=== PATIENT | female | born 1965 | race Caucasian/White ===

== ENCOUNTER 2019-11-05 09:39 | Outpatient (CLI) | payer OTHER, SELFPAY ==
[2019-11-05 10:33] LABS: Alanine Aminotransferase 36 U/L (4-35); Aspartate Amino Transferase 24 U/L (14-36)
== END 2019-11-05 09:40 | disposition home or self-care (01) ==
LOC: ANHLAB 09:48
PROVIDERS: PCP Internal Medicine; Visit Provider Podiatrist Foot & Ankle Surgery
DX: B35.1 Tinea unguium (principal)
CPT/HCPCS: 36415; 84450; 84460

== ENCOUNTER 2022-04-05 09:52 | Outpatient (CLI) | payer OTHER, SELFPAY ==
--- NOTE | 2022-04-05 10:00 | ECG_ITS ---
Measurements Intervals [place] Rate: 72 P: 17 [place]: 183 QRS: 13 QRSD: 93 T: 10 QT: 388 QTc: 427 Interpretive Statements SINUS RHYTHM NORMAL ECG NO PREVIOUS ECG AVAILABLE FOR COMPARISON Electronically Signed On 04-05-2022 16:08:44 CDT by Felipe Suggs M.D.
== END 2022-04-05 09:53 | disposition home or self-care (01) ==
LOC: ANHCARD 09:53
PROVIDERS: PCP Family Medicine; Visit Provider Family Medicine
DX: Z01.818 Encounter for other preprocedural examination (principal); I10 Essential (primary) hypertension
CPT/HCPCS: 93005

== ENCOUNTER 2022-04-11 06:36 | Outpatient (CLI) | payer OTHER, SELFPAY ==
--- NOTE | ~2022-04-11 | MR_ITS ---
EXAMINATION: MR brain/brain stem wo con DATE: 04/11/2022 07:09 INDICATION: Right eye monocular vision loss. Sudden visual loss. TECHNIQUE: Magnetic resonance imaging (MRI) of the brain and brainstem was performed without intraven ous contrast. COMPARISON: None. FINDINGS: There is no intracranial hemorrhage, acute infarction, or abnormal intracranial mass lesion . There are scattered areas of nonspecific increased T2-weighted signal intensity in the cerebral whi te matter and yoseph. The ventricles are normal in size. The mastoid air cells are normal. The orbits a re normal. There is mild mucosal thickening in the paranasal sinuses. IMPRESSION: 1. Mild nonspecific cerebral white matter disease and pontine disease, which likely represents chroni c small vessel ischemic disease. Reviewed, dictated and finalized at location A. IMPRESSION: 1. Mild nonspecific cerebral white matter disease and pontine disease, which israel stephen represents chronic small vessel ischemic disease.
== END 2022-04-11 06:37 | disposition home or self-care (01) ==
PROVIDERS: PCP Family Medicine; Visit Provider Physician Assistant Medical
DX: H53.139 Sudden visual loss, unspecified eye (principal); R90.82 White matter disease, unspecified; G93.89 Other specified disorders of brain
CPT/HCPCS: 70551

== ENCOUNTER → 2022-07-17 14:50 | Outpatient (CLI) | payer OTHER, SELFPAY ==
--- NOTE | ~2022-07-17 | CT_ITS ---
EXAMINATION: CTA brain carotid DATE: 07/18/2022 13:03 RAYON CONER INDICATION: Right-sided amaurosis fugax TECHNIQUE: Computed tomographic angiography (CTA) of the head was performed without and with 100 mL O mnipaque-350 intravenous contrast. CTA of the neck was performed with intravenous contrast. The dose- length product was 1577.53 mGy-cm. Maximum intensity projection and volume rendered 3D-reconstruction s were created by the technologist on a separate workstation. COMPARISON: MRI dated 04/11/2022. FINDINGS: HEAD CTA: Brain parenchymal volume is normal for age. There are scattered mild periventricular and correa bcortical white matter changes, most likely related to small vessel ischemic disease (microangiopathy ). No ventriculomegaly or midline shift. Basilar cisterns are patent. No acute infarction, hemorrhage , mass or mass effect. Normal vega-white differentiation. Paranasal sinuses and mastoids are pneumati zed. There is mild mucosal thickening of the left sphenoid sinus. The anterior, middle and posterior cerebral arteries are symmetric without significant stenosis, occl usion or aneurysm. NECK CTA: No significant stenosis, atherosclerosis, dissection or occlusion is identified in the ramirez tid arteries. The vertebral arteries are symmetric without significant abnormality. Thyroid gland is unremarkable. Lung apices are normal. There is 0% stenosis of the proximal right internal carotid artery relative to normal distal artery l umen diameter (NASCET criteria). There is 0% stenosis of the proximal left internal carotid artery re lative to normal distal artery lumen diameter. IMPRESSION: 1. 0% stenosis of the proximal right internal carotid artery relative to normal distal artery lumen d iameter (NASCET criteria). 2. 0% stenosis of the proximal left internal carotid artery relative to normal distal artery lumen di ameter. 3: No acute intracranial abnormality. 4: Mild left sphenoid sinus disease. Reviewed, dictated and finalized at location A. N CONER IMPRESSION: 1. 0% stenosis of the proximal right internal carotid artery relative to normal distal artery lumen diameter (NASCET criteria). 2. 0% stenosis of the proximal left internal carotid artery relative to normal distal artery lumen diameter. 3: No acute intracranial abnormality. 4: Mild left sphenoid sinus disease.
[2022-07-17 15:11] LABS: Estimated Glomerular Filt Rate > 60
== END ==
PROVIDERS: PCP Family Medicine; Visit Provider Student in an Organized Health Care Education/Training Program
DX: H53.131 Sudden visual loss, right eye (principal); J32.3 Chronic sphenoidal sinusitis
CPT/HCPCS: 70496; 70498; Q9967

== ENCOUNTER 2024-01-08 07:55 | Outpatient (CLI) | payer OTHER, SELFPAY ==
--- NOTE | ~2024-01-08 | US_ITS ---
Limited Abdominal Sonogram: Real-time sonographic imaging of the right upper quadrant was performed. Clinical History: Abnormal findings of blood chemistry Findings: The liver appears mildly echogenic, with no evidence of mass lesion or bile duct dilatatio n. Main portal vein demonstrates normal direction of flow. The gallbladder is well distended, and gautam ears normal with no evidence of gallstone or wall thickening. The common bile duct measures 3 mm. Th e visualized pancreas, aorta, and IVC are unremarkable. Right kidney measures 10.4 cm in length, with out hydronephrosis. Impression: Probable diffuse fatty infiltration of the liver. Reviewed, dictated and finalized at location . Impression: Probable diffuse fatty infiltration of the liver.
== END 2024-01-08 07:56 ==
LOC: MICIMG 07:56
PROVIDERS: PCP Family Medicine; Visit Provider Physician Assistant Medical
DX: R79.89 Other specified abnormal findings of blood chemistry (principal)
CPT/HCPCS: 76705

== ENCOUNTER 2024-03-12 08:28 | Outpatient (CLI) | payer OTHER, SELFPAY ==
--- NOTE | 2024-03-12 08:35 | ECHO_ITS ---
Patient Info Name: Treasure Myers Age: 58 years : 1965 Gender: Female Ht: 67 in Wt: 260 lbs BSA: 2.42 m2 HR: 76 bpm BP: 128 / 72 mmHg Technical Quality: Fair Exam Date: 03/12/2024 9:02 AM Exam Location: Echo Lab Patient Status: Outpatient Admit Date: 03/12/2024 Staff Ordering Physician: Kiara Black MD Trace Clerk: Erick Garcia RDCS Attending Provider: Kiara Black MD Exam Type: CA echo doppler w bubble study Study Info Indications H53.139 - Sudden visual loss, unspecified eye Complete two-dimensional, color flow and Doppler transthoracic echocardiogram is performed with agitated saline. Contrast/Agitated Saline Contrast/Ag. Saline: Agitated Saline Amount: 18.00 ml New IV Access: Left Site Condition: IV removed Summary 1. Left ventricular chamber dimension is normal. 2. Left ventricular systolic function is normal, estimated at 65-70%. 3. The left ventricular diastolic function is normal. 4. E/e '5 is not elevated. 5. There is trace mitral valve regurgitation. 6. There is trace tricuspid valve regurgitation. 7. No pulmonary hypertension, estimated pulmonary arterial systolic pressure is 28 mmHg. Left Ventricle E/e '5 is not elevated. Left ventricular chamber dimension is normal. Left ventricular systolic function is normal, estimated at 65-70%. The left ventricular diastolic function is normal. Right Ventricle Right ventricular chamber dimension is normal. Right ventricular systolic function is normal. Left Atria Left atrial chamber dimension is normal. Right Atria Right atrial chamber dimension is normal. Atrial Septum Agitated saline injection with valsalva maneuver opacified right side cardiac chambers without shunt to left side cardiac chambers. Intact interatrial septum visualized by 2D and agitated saline imaging. Aortic Valve The aortic valve is trileaflet. There is no aortic valve stenosis. There is no aortic valve regurgitation. Pulmonic Valve There is no pulmonic regurgitation. Mitral Valve There is no mitral valve stenosis. There is trace mitral valve regurgitation. Tricuspid Valve There is trace tricuspid valve regurgitation. No pulmonary hypertension, estimated pulmonary arterial systolic pressure is 28 mmHg. Pericardium/Pleural There is no pericardial effusion. Inferior Vena Cava Normal inferior vena cava with >50% collapse upon inspiration consistent with normal right atrial pressure, 5 mmHg. Aorta The aortic root size at the sinus of Valsalva is normal. Left Ventricular Outflow Tract Name Value Normal LVOT 2D LVOT Diameter 2.0 cm LVOT Doppler LVOT Peak Gradient 4 mmHg LVOT Mean Gradient 3 mmHg LVOT VTI 24 cm LVOT VTI/AV VTI Ratio 0.9 LVOT Stroke Volume 80 ml LVOT CO 5.8 l/min LVOT CI 2.4 l/min/m2 Pulmonic Valve Name Value Normal PV Doppler PV Peak Gradient 4 mmHg Mitral Valve Name Value Normal MV Doppler MV Peak Gradient 3 mmHg MV Mean Gradient 1 mmHg MV Decel [place] 395 cm/s2 MV PHT 56 ms MV Area (PHT) 3.9 cm2 4.0-5.0 MV Area (Cont Eq VTI) 4.0 cm2 MV Diastolic Function MV E Peak Velocity 77 cm/s MV A Peak Velocity 68 cm/s MV E/A 1.1 MV Decel Time 194 ms MV Annular TDI MV E/e' (Septal) 7.2 <=8.0 MV E/e' (Lateral) 5.1 <=8.0 MV E/e' (Average) 6.2 Tricuspid Valve Name Value Normal TV Regurgitation Doppler TR Peak Velocity 239 cm/s TR Peak Gradient 23 mmHg Estimated PAP/RSVP RA Pressure 5 mmHg <=5 PA Systolic Pressure 28 mmHg <36 RV Systolic Pressure 28 mmHg <36 Aortic Valve Name Value Normal AV Doppler AV Peak Velocity 136 cm/s AV Peak Gradient 7 mmHg AV Mean Gradient 4 mmHg AV VTI 27 cm AV Area (Cont Eq VTI) 3.0 cm2 >=3.0 AV Area (Cont Eq Paco) 2.5 cm2 AV Regurgitation 2D LVOT Area 3.3 cm2 Ventricles Name Value Normal LV Dimensions 2D/MM IVS Diastolic Thickness (2D) 1.0 cm 0.6-1.0 LVID Diastole (2D) 4.5 cm 3.8-5.2 LVIW Diastolic Thickness (2D) 1.0 cm 0.6-0.9 LVID Systole (2D) 3.0 cm 2.2-3.5 LVOT Diameter 2.0 cm LV Mass (2D Cubed) 144.80 g 67.00-162.00 LV Mass Index (2D Cubed) 60 g/m2 43-95 Relative Wall Thickness (2D) 0.43 LV Fractional Shortening/Ejection Fraction 2D/MM LV Fractional Shortening (2D) 33 % 27-45 LV EF (2D Teicholz) 62 % 54-74 LV Diastolic Volume (4C MOD) 67 ml LV EF (4C MOD) 58 % LV Diastolic Volume (2C MOD) 65 ml LV EF (2C MOD) 56 % LV Diastolic Volume (BP MOD) 68 ml 46-106 LV Diastolic Volume Index (BP MOD) 28 ml/m2 29-61 LV Systolic Volume (BP MOD) 30 ml 14-42 LV Systolic Volume Index (BP MOD) 12 ml/m2 8-24 LV EF (BP MOD) 56 % 54-74 LV Diastolic Length (4C) 7.9 cm LV Systolic Length (4C) 6.5 cm LV Stroke Volume (4C MOD) 39 ml Atria Name Value Normal LA Dimensions LA Volume (4C A-L) 28 ml LA Volume (BP A-L) 44 ml RA Dimensions RA Area (4C) 13.2 cm2 <=18.0 Report Signatures
== END 2024-03-12 08:29 | disposition home or self-care (01) ==
LOC: ANHCARD 08:29
PROVIDERS: PCP Family Medicine; Visit Provider Student in an Organized Health Care Education/Training Program
DX: H53.132 Sudden visual loss, left eye (principal)
CPT/HCPCS: 93306; 96375

== ENCOUNTER 2024-08-07 13:58 | Emergency (ER) | payer OTHER, SELFPAY ==
[2024-08-07 14:33] VITALS: BP 140/75; PULSE 79; RESP 16; TEMP 36.4; O2SAT 96
--- NOTE | 2024-08-07 14:39 | ECG_ITS ---
Test Date: 2024-08-07 14:46:59 Measurements Intervals [place] Rate: 81 P: 58 RI: 162 QRS: 18 QRSD: 98 T: 11 QT: 376 QTc: 437 Interpretive Statements SINUS RHYTHM WITH SINUS ARRHYTHMIA POSSIBLE LEFT ATRIAL ENLARGEMENT [-0.1mV P WAVE IN V1/V2] NONSPECIFIC T-WAVE ABNORMALITY ABNORMAL ECG No previous ECG available for comparison Electronically Signed On 08-08-2024 16:55:06 RAISIN WASHER by Guicho Brown M.D.
--- NOTE | 2024-08-07 14:39 | ED.CHESTPAIN ---
HPI - Chest Pain General Chief Complaint: Chest Pain Stated Complaint: chest pain Mid back pain acid reflux Time Seen by Provider: 08/07/24 14:40 Source: patient Mode of arrival: ambulatory Limitations: no limitations History of Present Illness HPI narrative: Treasure is a 58-year-old female patient presenting to the clinic today with complaints of right-sided chest pain that is radiating into the right scapula. States has a dull ache at this time. Rates the pain 4/10 currently. States the pain does not radiate elsewhere. She denies any shortness of breath or diaphoresis. Denies any abdominal pain. Pain is not reproducible. Thought this may be heartburn. Has not taken any medications for her symptoms. History of TIA, hyperlipidemia, prediabetes, and hypertension. She is a nonsmoker. Related Data Home Medications ?Medication ?Instructions ?Recorded ?Confirmed ?Last Taken ?Type diazepam 2 mg tablet 2 mg PO Q6H PRN 03/02/22 12/12/23 Unknown History meclizine 25 mg tablet 25 mg PO TID PRN 03/02/22 12/12/23 Unknown History triamterene 37.5 1 tablet PO QAM 03/02/22 08/07/24 Unknown History mg-hydrochlorothiazide 25 mg tablet efinaconazole 10 % topical 1 applic topical QHS PRN 04/11/22 12/12/23 Unknown History solution with applicator Allergies Allergy/AdvReac Type Severity Reaction Status Date / Time acetaminophen (From Vicodin) Allergy Severe Vomiting Verified 08/07/24 14:39 hydrocodone (From Vicodin) Allergy Severe Vomiting Verified 08/07/24 14:39 adhesive tape Allergy Unknown skin Verified 08/07/24 14:39 irritation azithromycin (From Zithromax) Allergy Unknown Hives Verified 08/07/24 14:39 Review of Systems Review of Systems: Pertinent positives per HPI. Patient denies any fever, chills, rash, headache, visual changes, dizziness, cough, runny nose, sore throat, shortness of breath, palpitations, nausea, vomiting, diarrhea, constipation, abdominal pain, or any urinary issues. [facility] Past Medical History Medical History Stage 1 type 1 prediabetes Migraine syndrome Transient ischemic attack Essential hypertension delivery delivered Menieres disease Eczema Mixed hyperlipidemia Migraine without aura, intractable, with status migrainosus MDD (major depressive disorder), recurrent episode, mild Lipid screening Fatty liver Essential (primary) hypertension Elevated LFTs Elevated fasting glucose Dietary counseling and surveillance (05/10/17) Diarrhea, functional Diabetes mellitus screening Anxiety-like symptoms Surgical History Surgical History History of tonsillectomy History of partial hysterectomy Family History Family History Mother Family history of arthritis Asthma Hypertension Anxiety Dementia Father Brain aneurysm Anxiety Daughter Asthma Anxiety Depression Grandparent Cerebrovascular accident Grandparent Cancer of unknown origin Acute myocardial infarction Social History Social History Smoking status: Never smoker Alcohol intake: never Substance use: never Substance use type: does not use Lack of Transportation: No Lack of Food: Never True Current Housing: I Have Housing Concerned About Future Housing: No Difficulty Paying Gas/Electric Bills: No Difficulty Paying for Meds: No Currently Unemployed: No Education: Bachelor's Degree Difficulty w/ Childcare or Family Care: No Comments At the time of my signature, I reviewed and agree with the nursing past medical, surgical, social, and family history. There is no relevant family history pertinent to the patient complaint. Exam Narrative: General: Well-developed, well nourished, in no apparent distress Head: Normocephalic, atraumatic. Cardio: Regular rate and rhythm, s1 and s2 normal, no murmur appreciated. Resp: Clear to auscultation bilaterally, no rhonchi, rales, wheezing or rubs. Extremities: No deformity, no edema, no cyanosis, capillary refill less than 2 seconds, peripheral pulses palpable and strong. Integumentary: [place], warm, and dry, intact without lesion, no rashes. Course Course Emergency Course: Portions of this record may have been created with voice recognition software. Level of Care: Express Care Visit Vital Signs Vital signs: Vital Signs Temperature 36.4 C 08/07/24 14:33 Pulse Rate 79 08/07/24 14:33 Respiratory Rate 16 08/07/24 14:33 Blood Pressure 140/75 08/07/24 14:33 Pulse Oximetry 96 08/07/24 14:33 Temperature 36.4 C 08/07/24 14:33 Pulse Rate 79 08/07/24 14:33 Respiratory Rate 16 08/07/24 14:33 Blood Pressure 140/75 08/07/24 14:33 Pulse Oximetry 96 08/07/24 14:33 Vital signs reviewed Transfer Transfered to: [facility] Transportation: Other (Private car) Transfer rationale: Right-sided chest pain radiating to scapula Accepting physician: Dr. Fletcher Transfer comments: Transfer via private car-4 chewable baby aspirin were given prior to discharge MDM - Chest Pain MDM Narrative Medical decision making narrative: At the time of visit patient is resting comfortably on the exam table. Patient appears to be nontoxic. EKG: EKG shows sinus rhythm with sinus arrhythmia with a possible left atrial enlargement nonspecific T-wave abnormality. Heart rate 81 beats per min. Plan: Recommend transfer to the ER for further evaluation for chest pain. Patient agrees to go to [facility]. Contacted Dr. Fletcher at [facility] and report was given for continuity of care and he accepts patient for transport. Will give 4 baby chewable aspirins prior to transfer. Differential Diagnosis Differential diagnosis: Likely fracture of rib, pneumothorax, stable angina, unstable angina pectoris, atypical chest pain, st elevation myocardial infarction, costochondritis, chest pain and biliary colic ECG Data EKG #1: Attestation: I personally reviewed and interpreted this ECG as follows: ECG completion date: 08/07/24 ECG completion time: 14:46 Prior ECG tracings: not available for review Ischemic changes: non-specific ST-T wave changes Interpretation: EKG shows sinus rhythm with sinus arrhythmia with a possible left atrial enlargement nonspecific T-wave abnormality. Heart rates 81 beats per minute. NV interval is 162 milliseconds, QRS durations 98 milliseconds, QT-QTC is 376-413 milliseconds, P-R-T axis is 58 18 and 11 Discharge Plan Discharge Clinical Impression: Chest pain Qualifiers: Chest pain type: unspecified Qualified Code(s): R07.9 - Chest pain, unspecified Patient Disposition: Acute Care Hospital Condition: Stable Instructions: Antibiotic Form Patient Language: Cook Islander Prescriptions: No Action triamterene-hydrochlorothiazid 37.5-25 mg tablet 1 tablet PO QAM meclizine 25 mg tablet 25 mg PO TID PRN diazepam 2 mg tablet 2 mg PO Q6H PRN efinaconazole 10 % solution with applicator 1 applic topical QHS PRN atorvastatin 80 mg tablet 80 mg PO DAILY Qty: 90 4RF aspirin 81 mg capsule 81 mg PO DAILY Qty: 30 3RF amlodipine 5 mg tablet 5 mg PO DAILY Qty: 30 5RF Contrave 8-90 mg tablet extended release 2 tablet PO QAM AND QPM Qty: 120 0RF fluoxetine 20 mg tablet 20 mg PO DAILY Qty: 30 6RF Follow-up/Referrals: Malu Medley MD [Primary Care Provider] - Time of Disposition: 14:59 Quality NIHSS Nursing Documentation ED NIHSS nursing documentation: reviewed/agree
[2024-08-07] MEDS: ASPIRIN 81 MG CHEWABLE TABLET 324 MG PO (14:55)
== END 2024-08-07 15:00 | disposition short-term general hospital (02) ==
PROVIDERS: Emergency Provider Nurse Practitioner Family; PCP Family Medicine
DX: R07.9 Chest pain, unspecified (principal); E78.5 Hyperlipidemia, unspecified; I10 Essential (primary) hypertension; Z86.73 Personal history of transient ischemic attack (TIA), and cerebral infarction without residual deficits; R73.03 Prediabetes
CPT/HCPCS: 93005; 99213; A9270; G0463

== ENCOUNTER 2024-08-07 15:16 | Emergency (ER) | payer OTHER, SELFPAY ==
--- NOTE | ~2024-08-07 | CT_ITS ---
EXAMINATION: CT abdomen pelvis w con DATE: 08/07/2024 20:48 INDICATION: abnl liver enzymes, R upper back pain TECHNIQUE: Computed tomography (CT) of the abdomen and pelvis was performed with 100 mL Omnipaque-350 intravenous contrast. Automated exposure control and iterative reconstruction technique were employe d. The dose-length product was 1726.78 mGy-cm. COMPARISON: None. FINDINGS: Lower thorax: Unremarkable Liver: Mildly enlarged. Biliary/Gallbladder: Gallbladder is normal. No bile duct dilation. Pancreas: No mass or duct dilation. Spleen: Normal. Adrenals:No mass. Kidneys: No suspicious mass, obstructing stone, or hydronephrosis. GI tract: Mild antral wall edema. No small or large bowel dilation. Normal appendix. Mesentery/Peritoneum: No ascites, mass, or free air. Retroperitoneum: No mass. Atherosclerotic abdominal aortic and/or arterial calcifications. Pelvis: Normal urinary bladder. Absent uterus. Normal bilateral ovaries. Soft Tissues: Soft tissues and body wall unremarkable. Bones: No acute osseous finding. IMPRESSION: Mild antral gastritis. Mild hepatomegaly. Reviewed, dictated and finalized at location K. ER TEACHER
--- NOTE | ~2024-08-07 | XR_ITS ---
XR chest 2V Ordering provider: Lakhwinder Fletcher MD History: 58 years Female with . CP . Comparison: None. FINDINGS: MEDIASTINUM: The cardiac silhouette is not enlarged. LUNGS: No infiltrates, effusions or pneumothorax. OTHER: No free air under the diaphragm. Degenerative changes of the spine. IMPRESSION: No acute cardiopulmonary pathology. Reviewed, dictated and finalized at location A. DESK ADMINISTRATOR
[2024-08-07 15:19] VITALS: BP 151/81; PULSE 74; RESP 18; TEMP 36.2; O2SAT 98
--- NOTE | 2024-08-07 15:19 | ECG_ITS ---
Test Date: 2024-08-07 18:43:49 Measurements Intervals [place] Rate: 75 P: 53 MS: 163 QRS: 3 QRSD: 98 T: 3 QT: 383 QTc: 430 Interpretive Statements SINUS RHYTHM MINIMAL VOLTAGE CRITERIA FOR LVH, CONSIDER NORMAL VARIANT [MEETS CRITERIA IN ONE OF: R(aVL), S(V1), R(V5), R(V5/V6)+S(V1)] NONSPECIFIC T-WAVE ABNORMALITY ABNORMAL ECG Electronically Signed On 08-08-2024 17:07:28 SCENE PAINTER by Guicho Bronw M.D.
--- NOTE | 2024-08-07 15:26 | ED_ITS ---
HPI - Chest Pain General Chief Complaint: Chest Pain <ARMANDO Esparza Last Filed: 08/11/24 20:11> Stated Complaint: CP <Catalina Guallpa PA-C - Last Filed: 08/11/24 20:11> Time Seen by Provider: 08/07/24 15:26 <ARMANDO Esparza Last Filed: 08/11/24 20:11> Focused HPI: This is a 58 year old female that presents to the ER for right sided chest pain. Radiation into the shoulder. Reports she has been having trouble with acid reflux as well. This has been ongoing since yesterday afternoon. GENERAL: Well-appearing, well-nourished, and in no acute distress. HEAD: Normocephalic, atraumatic. CHEST: Clear to auscultation. ?No respiratory distress. HEART: Regular rate and rhythm.? NEURO: ?Alert and oriented x3. Patient screened in triage and initial orders placed.? ?Additional care and disposition to be based upon?diagnostic testing and treatment. <Catalina Guallpa PA-C - Last Filed: 08/11/24 20:11> Focused HPI: This is a 58 year old female that presents to the ER for right sided chest pain. Radiation into the shoulder. Reports she has been having trouble with acid reflux as well. This has been ongoing since yesterday afternoon. GENERAL: Well-appearing, well-nourished, and in no acute distress. HEAD: Normocephalic, atraumatic. CHEST: Clear to auscultation. ?No respiratory distress. HEART: Regular rate and rhythm.? NEURO: ?Alert and oriented x3. Patient screened in triage and initial orders placed.? ?Additional care and disposition to be based upon?diagnostic testing and treatment. <ARMANDO Whitfield Last Filed: 08/08/24 00:38> Source: patient <ARMANDO Whitfield Last Filed: 08/08/24 00:38> Mode of arrival: ambulatory <ARMANDO Whitfield Last Filed: 08/08/24 00:38> Limitations: no limitations <Annie Gonzales PA-C - Last Filed: 08/08/24 00:38> History of Present Illness HPI narrative: Agree with above HPI. Does report some pleuritic discomfort. Denies shortness of breath. Denies abdominal pain, nausea, vomiting, cough or cold symptoms. <Annie Gonzales PA-C - Last Filed: 08/08/24 00:38> Related Data Home Medications: Home Medications ?Medication ?Instructions ?Recorded ?Confirmed ?Last Taken ?Type diazepam 2 mg tablet 2 mg PO Q6H PRN 03/02/22 12/12/23 Unknown History meclizine 25 mg tablet 25 mg PO TID PRN 03/02/22 12/12/23 Unknown History triamterene 37.5 1 tablet PO QAM 03/02/22 08/07/24 Unknown History mg-hydrochlorothiazide 25 mg tablet efinaconazole 10 % topical 1 applic topical QHS PRN 04/11/22 12/12/23 Unknown History solution with applicator <Catalina Guallpa PA-C - Last Filed: 08/11/24 20:11> Allergies/Adverse Reactions: Allergies Allergy/AdvReac Type Severity Reaction Status Date / Time acetaminophen (From Vicodin) Allergy Severe Vomiting Verified 08/07/24 14:39 hydrocodone (From Vicodin) Allergy Severe Vomiting Verified 08/07/24 14:39 adhesive tape Allergy Unknown skin Verified 08/07/24 14:39 irritation azithromycin (From Zithromax) Allergy Unknown Hives Verified 08/07/24 14:39 <Catalina Guallpa PA-C - Last Filed: 08/11/24 20:11> Review of Systems 2 Review of Systems: All systems reviewed & are unremarkable except as noted in HPI. <Annie Gonzales PA-C - Last Filed: 08/08/24 00:38> All systems reviewed & are unremarkable except as noted in HPI and below < Annie Gonzales PA-C - Last Filed: 08/08/24 00:38> PMFSH Past Medical History Medical History: Medical History Stage 1 type 1 prediabetes Migraine syndrome Transient ischemic attack Essential hypertension delivery delivered Menieres disease Eczema Mixed hyperlipidemia Migraine without aura, intractable, with status migrainosus MDD (major depressive disorder), recurrent episode, mild Lipid screening Fatty liver Essential (primary) hypertension Elevated LFTs Elevated fasting glucose Dietary counseling and surveillance (05/10/17) Diarrhea, functional Diabetes mellitus screening Anxiety-like symptoms <Catalina Guallpa PA-C - Last Filed: 08/11/24 20:11> Surgical History Surgical History: Surgical History History of tonsillectomy History of partial hysterectomy <Catalina Guallpa PA-C - Last Filed: 08/11/24 20:11> Family History Family History: Family History Mother Family history of arthritis Asthma Hypertension Anxiety Dementia Father Brain aneurysm Anxiety Daughter Asthma Anxiety Depression Grandparent Cerebrovascular accident Grandparent Cancer of unknown origin Acute myocardial infarction <Catalina Guallpa PA-C - Last Filed: 08/11/24 20:11> Social History Social History: Social History Smoking status: Never smoker Alcohol intake: never Substance use: never Substance use type: does not use Lack of Transportation: No Lack of Food: Never True Current Housing: I Have Housing Concerned About Future Housing: No Difficulty Paying Gas/Electric Bills: No Difficulty Paying for Meds: No Currently Unemployed: No Education: Bachelor's Degree Difficulty w/ Childcare or Family Care: No <Catalina Guallpa PA-C - Last Filed: 08/11/24 20:11> Exam 2 Narrative: GENERAL: Well appearing, obese with BMI of 39.2, non-toxic, in no acute distress. HEAD: Normocephalic, atraumatic. RESPIRATORY: Airway patent, respirations nonlabored. Clear to auscultation bilaterally, no rales, rhonchi, wheezing. CARDIOVASCULAR: Regular rate and rhythm without murmurs, rubs, or gallops. ABDOMINAL: Soft, no significant tenderness throughout abdomen, nondistended. Normoactive BS. MUSCULOSKELETAL: Moves all extremities. No gross deformities. No chest wall tenderness to palpation. No tenderness throughout right scapular region. SKIN: Warm, dry, normal color. NEURO: A&O X3. Speech clear. Cranial nerves II-XII grossly intact. Steady gait. No ataxic movements. PSYCHIATRIC: Appropriate mood and affect. Normal interaction. <Annie Gonzales PA-C - Last Filed: 08/08/24 00:38> Course Vital Signs Vital signs: Vital Signs Temperature 97.2 F L 08/07/24 15:19 Pulse Rate 74 08/07/24 15:19 Respiratory Rate 18 08/07/24 15:19 Blood Pressure 151/81 H 08/07/24 15:19 Pulse Oximetry 98 08/07/24 15:19 Oxygen Delivery Room Air 08/07/24 15:19 Temperature 98.6 F 08/07/24 22:04 Pulse Rate 68 08/07/24 22:04 Respiratory Rate 16 08/07/24 22:04 Blood Pressure 137/76 08/07/24 22:04 Pulse Oximetry 98 08/07/24 22:04 Oxygen Delivery Room Air 08/07/24 19:00 <Catalina Guallpa PA-C - Last Filed: 08/11/24 20:11> Vital Signs Temperature 97.2 F L 08/07/24 15:19 Pulse Rate 74 08/07/24 15:19 Respiratory Rate 18 08/07/24 15:19 Blood Pressure 151/81 H 08/07/24 15:19 Pulse Oximetry 98 08/07/24 15:19 Oxygen Delivery Room Air 08/07/24 15:19 Temperature 98.6 F 08/07/24 22:04 Pulse Rate 68 08/07/24 22:04 Respiratory Rate 16 08/07/24 22:04 Blood Pressure 137/76 08/07/24 22:04 Pulse Oximetry 98 08/07/24 22:04 Oxygen Delivery Room Air 08/07/24 19:00 <Annie Gonzales PA-C - Last Filed: 08/08/24 00:38> MDM - Chest Pain MDM Narrative Medical decision making narrative: Patient presented to ED with right-sided chest and upper back pain since yesterday afternoon, also reporting acid reflux. Vital signs are stable upon arrival. Patient is in no acute distress. EKG is without concerning ischemic changes. Troponin is undetectable x2. Very low suspicion for ACS. HEART score =2 based on RF (BMI, HTN), age. Chest x-ray is clear. D-dimer is within normal range. CMP does show mild elevation of liver enzymes. Normal bilirubin. Normal lipase. Possibly could be biliary colic causing symptoms. CT imaging of abdomen showing evidence of gastritis, hepatomegaly. Patient was given GI cocktail and feeling much better. States pain is significantly improved. Discussed lab and imaging findings, likelihood of gastritis pain. Overall reassuring against a cardiac cause. Feel patient is safe for discharge home at this time. She does not currently take anything for acid reflux at home. Will prescribe omeprazole. Recommended close follow-up with PCP for further evaluation. Given strict return precautions. She agrees with plan and feels comfortable discharge home. Discharged in stable condition. <Annie Gonzales PA-C - Last Filed: 08/08/24 00:38> Medical Records Data Attestation: I reviewed the patient's medical records. <Annie Gonzales PA-C - Last Filed: 08/08/24 00:38> Lab Data Attestation: I reviewed the patient's lab results. <Annie Gonzales PA-C - Last Filed: 08/08/24 00:38> Result diagrams: 08/07/24 15:40 08/07/24 15:40 <Catalina Guallpa PA-C - Last Filed: 08/11/24 20:11> Labs: Lab Results 08/07/24 08/07/24 Range/Units 15:40 19:37 WBC 6.2 (4.5-10.0) K/mm3 RBC 4.86 (4.2-5.4) M/mm3 Hgb 13.9 (12.0-15.0) g/dL Hct 42.1 (37.0-47.0) % MCV 86.6 (80-100) fl MCH 28.6 (26-34) pg MCHC 33.0 (32-36) g/dl RDW 13.7 (11.5-14.5) % Plt Count 257 (150-375) k/mm3 MPV 10.2 (7.4-10.4) fl Immature Gran % (Auto) 0.3 (0-0.5) % Neut % (Auto) 58.0 (45.5-73.1) % Lymph % (Auto) 33.7 (18.3-44.2) % [place] % (Auto) 6.2 (2.6-8.5) % Eos % (Auto) 1.1 (0-4.4) % Baso % (Auto) 0.7 (0.2-1.2) % Lymph # (Auto) 2.07 (0.9-3.2) K/mm3 [place] # (Auto) 0.4 (0.1-0.6) K/mm3 Eos # (Auto) 0.1 (0-0.3) K/mm3 Baso # (Auto) 0.0 (0.0-0.1) K/mm3 Abs Immat Gran (auto) 0.02 (0.00-0.031) K/mm3 Absolute Neuts (auto) 3.6 (1.3-6.7) K/mm3 Absolute Nucleated RBC 0.000 (0.0-0.012) K/mm3 Nucleated RBC % 0.0 (0.0-0.2) % PT 12.8 (11.1-14.7) Seconds INR 0.9 APTT 25.1 (22.3-36.8) Seconds D-Dimer < 0.27 (<0.48) ug/mL Sodium 136 L (137-145) mmol/L Potassium 3.7 (3.4-5.0) mmol/L Chloride 103 (98-107) mmol/L Carbon Dioxide 26 (22-30) mmol/L Anion Gap 7 (4-12) mmol/L BUN 21 H (7-17) mg/dL Creatinine 1.10 H (0.7-1.0) mg/dL Estim Creat Clear Calc 66 ml/min Estimated GFR 51 L (59 - ) Glucose 132 H (65-110) mg/dL Calcium 9.3 (8.4-10.2) mg/dL Total Bilirubin 0.8 (0.2-1.3) mg/dL AST 61 H (14-36) U/L ALT 107 H (6-35) U/L Alkaline Phosphatase 139 H (38-126) U/L Troponin I < 0.012 < 0.012 (0.000-0.034) ng/mL Total Protein 8.0 (6.3-8.2) g/dL Albumin 4.6 (3.5-5.1) g/dL Lipase 179 (23-300) U/L <Catalina Guallpa PA-C - Last Filed: 08/11/24 20:11> Lab Results 08/07/24 08/07/24 Range/Units 15:40 19:37 WBC 6.2 (4.5-10.0) K/mm3 RBC 4.86 (4.2-5.4) M/mm3 Hgb 13.9 (12.0-15.0) g/dL Hct 42.1 (37.0-47.0) % MCV 86.6 (80-100) fl MCH 28.6 (26-34) pg MCHC 33.0 (32-36) g/dl RDW 13.7 (11.5-14.5) % Plt Count 257 (150-375) k/mm3 MPV 10.2 (7.4-10.4) fl Immature Gran % (Auto) 0.3 (0-0.5) % Neut % (Auto) 58.0 (45.5-73.1) % Lymph % (Auto) 33.7 (18.3-44.2) % [place] % (Auto) 6.2 (2.6-8.5) % Eos % (Auto) 1.1 (0-4.4) % Baso % (Auto) 0.7 (0.2-1.2) % Lymph # (Auto) 2.07 (0.9-3.2) K/mm3 [place] # (Auto) 0.4 (0.1-0.6) K/mm3 Eos # (Auto) 0.1 (0-0.3) K/mm3 Baso # (Auto) 0.0 (0.0-0.1) K/mm3 Abs Immat Gran (auto) 0.02 (0.00-0.031) K/mm3 Absolute Neuts (auto) 3.6 (1.3-6.7) K/mm3 Absolute Nucleated RBC 0.000 (0.0-0.012) K/mm3 Nucleated RBC % 0.0 (0.0-0.2) % PT 12.8 (11.1-14.7) Seconds INR 0.9 APTT 25.1 (22.3-36.8) Seconds D-Dimer < 0.27 (<0.48) ug/mL Sodium 136 L (137-145) mmol/L Potassium 3.7 (3.4-5.0) mmol/L Chloride 103 (98-107) mmol/L Carbon Dioxide 26 (22-30) mmol/L Anion Gap 7 (4-12) mmol/L BUN 21 H (7-17) mg/dL Creatinine 1.10 H (0.7-1.0) mg/dL Estim Creat Clear Calc 66 ml/min Estimated GFR 51 L (59 - ) Glucose 132 H (65-110) mg/dL Calcium 9.3 (8.4-10.2) mg/dL Total Bilirubin 0.8 (0.2-1.3) mg/dL AST 61 H (14-36) U/L ALT 107 H (6-35) U/L Alkaline Phosphatase 139 H (38-126) U/L Troponin I < 0.012 < 0.012 (0.000-0.034) ng/mL Total Protein 8.0 (6.3-8.2) g/dL Albumin 4.6 (3.5-5.1) g/dL Lipase 179 (23-300) U/L <Annie Gonzales PA-C - Last Filed: 08/08/24 00:38> Imaging Data Attestation: I personally reviewed and interpreted this imaging study as follows: < Annie Gonzales PA-C - Last Filed: 08/08/24 00:38> Radiologist's impression: ITS Impressions Chest X-Ray 08/07/24 16:07 IMPRESSION: No acute cardiopulmonary pathology. Abdomen/Pelvis CT 08/07/24 20:51 IMPRESSION: Mild antral gastritis. Mild hepatomegaly. <ARMANDO Whitfield Last Filed: 08/08/24 00:38> ECG Data EKG #1: Attestation: I personally reviewed and interpreted this ECG as follows: <ARMANDO Whitfield Last Filed: 08/08/24 00:38> ECG completion date: 08/07/24 <ARMANDO Whitfield Last Filed: 08/08/24 00:38> ECG completion time: 18:43 <ARMANDO Whitfield Last Filed: 08/08/24 00:38> EKG Interpretation: normal rate (75), sinus rhythm and no ST changes <ARMANDO Whitfield Last Filed: 08/08/24 00:38> Critical Care Time Critical Care Time Critical Care Time: No <ARMANDO Esparza Last Filed: 08/11/24 20:11> Discharge Plan Discharge Clinical Impression: Right-sided chest pain Gastritis Qualifiers: Gastritis type: unspecified gastritis Chronicity: acute Gastritis bleeding: w ithout bleeding Qualified Code(s): K29.00 - Acute gastritis without bleeding <ARMANDO Esparza Last Filed: 08/11/24 20:11> Patient Disposition: Home, Self-Care <ARMANDO Esparza Last Filed: 08/11/24 20:11> Condition: Stable <ARMANDO Esparza Last Filed: 08/11/24 20:11> Instructions: Antibiotic Form, Chest Pain (ED), Gastritis (ED), Diet for Stomach Ulcers and Gastritis (ED) <ARMANDO Esparza Last Filed: 08/11/24 20:11> Additional Instructions: Your workup here was reassuring against a cardiac cause of your chest pain. Recommend taking omeprazole daily for acid reflux. You may also try Tylenol for pain. Follow-up with your primary care doctor for further evaluation. Return to the ED if you experience worsening or severe pain, difficulty breathing or feeling short of breath, unable to keep down food or drink, persistent fevers, or any other symptoms of concern. <ARMANDO Esparza Last Filed: 08/11/24 20:11> Patient Language: Urdu <ARMANDO Esparza Last Filed: 08/11/24 20:11> Prescriptions: New omeprazole 10 mg capsule,delayed release(DR/EC) 10 mg PO DAILY Qty: 30 0RF No Action triamterene-hydrochlorothiazid 37.5-25 mg tablet 1 tablet PO QAM meclizine 25 mg tablet 25 mg PO TID PRN diazepam 2 mg tablet 2 mg PO Q6H PRN efinaconazole 10 % solution with applicator 1 applic topical QHS PRN atorvastatin 80 mg tablet 80 mg PO DAILY Qty: 90 4RF aspirin 81 mg capsule 81 mg PO DAILY Qty: 30 3RF amlodipine 5 mg tablet 5 mg PO DAILY Qty: 30 5RF Contrave 8-90 mg tablet extended release 2 tablet PO QAM AND QPM Qty: 120 0RF fluoxetine 20 mg tablet 20 mg PO DAILY Qty: 30 6RF <Catalina Guallpa PA-C - Last Filed: 08/11/24 20:11> Follow-up/Referrals: Malu Medley MD [Primary Care Provider] - <Catalina Guallpa PA-C - Last Filed: 08/11/24 20:11> Time of Disposition: 21:41 <Catalina Guallpa PA-C - Last Filed: 08/11/24 20:11> 21:41 <Annie Gonzales PA-C - Last Filed: 08/08/24 00:38> Quality HEART score for chest pain patients History: slightly suspicious <Annie Gonzales PA-C - Last Filed: 08/08/24 00:38> ECG: normal <Annie Gonzales PA-C - Last Filed: 08/08/24 00:38> Age: > 45 and < 65 years <Annie Gonzales PA-C - Last Filed: 08/08/24 00:38> Risk factors: 1 or 2 risk factors <Annie Gonzales PA-C - Last Filed: 08/08/24 00:38> Troponin: < or = to 1x normal limit <Annie Gonzales PA-C - Last Filed: 08/08/24 00:38> Heart score: 2 <Catalina Guallpa PA-C - Last Filed: 08/11/24 20:11> 2 <Annie Gonzales PA-C - Last Filed: 08/08/24 00:38>
--- NOTE | 2024-08-07 15:41 | PC.NURSE ---
Per YARITZA from EDP pt does not need another EKG as she had one done at Urgent Care prior to arrival to ED
[2024-08-07 15:52] LABS: Basophils Percent Auto 0.7 % (0.2-1.2); Eosinophils Absolute Auto 0.1 K/mm3 (0-0.3); Eosinophils Percent Auto 1.1 % (0-4.4); Hematocrit 42.1 % (37.0-47.0); Hemoglobin 13.9 g/dL (12.0-15.0); Immature Granulocyte Absolute 0.02 K/mm3 (0.00-0.031); Immature Granulocyte Percent A 0.3 % (0-0.5); Lymphocytes Absolute Auto 2.07 K/mm3 (0.9-3.2); Lymphocytes Percent Auto 33.7 % (18.3-44.2); Mean Corpuscular Hemoglobin 28.6 pg (26-34); Mean Corpuscular Volume 86.6 fl (80-100); Mean Platelet Volume 10.2 fl (7.4-10.4); Monocytes Absolute Auto 0.4 K/mm3 (0.1-0.6); Monocytes Percent Auto 6.2 % (2.6-8.5); Neutrophils Absolute Auto 3.6 K/mm3 (1.3-6.7); Platelet Count Result 257 k/mm3 (150-375); Red Blood Count 4.86 M/mm3 (4.2-5.4); Red Cell Distribution Width 13.7 % (11.5-14.5); White Blood Count 6.2 K/mm3 (4.5-10.0)
[2024-08-07 16:00] LABS: Alanine Aminotransferase 107 U/L (6-35); Albumin Level 4.6 g/dL (3.5-5.1); Alkaline Phosphatase 139 U/L (38-126); Anion Gap 7 mmol/L (4-12); Aspartate Amino Transferase 61 U/L (14-36); Bilirubin,Total 0.8 mg/dL (0.2-1.3); Blood Urea Nitrogen 21 mg/dL (7-17); Calcium 9.3 mg/dL (8.4-10.2); Carbon Dioxide 26 mmol/L (22-30); Chloride 103 mmol/L (98-107); Estimated CRCL calculation 66 ml/min; Estimated Glomerular Filt Rate 51; Glucose 132 mg/dL (65-110); Lipase 179 U/L (23-300); Potassium 3.7 mmol/L (3.4-5.0); Sodium 136 mmol/L (137-145)
[2024-08-07 16:07] LABS: INR 0.9; Prothrombin Time 12.8 Seconds (11.1-14.7)
[2024-08-07 16:08] LABS: Partial Thromboplastin Time 25.1 Seconds (22.3-36.8)
[2024-08-07 16:15] LABS: Troponin I < 0.012 ng/mL (0.000-0.034)
[2024-08-07 18:58] VITALS: BP 129/92; PULSE 89; RESP 16; O2SAT 96
[2024-08-07] MEDS: BELLADONNA ALK/PHENOB ELIX 10 ML, MAG HYDROX/ALUMINUM HYD/SIMETH 30 ML, LIDOCAINE 2% VI... PO (19:30)
[2024-08-07 19:36] VITALS: PULSE 68; RESP 16
[2024-08-07 20:09] LABS: D Dimer < 0.27 ug/mL (<0.48)
[2024-08-07 20:10] LABS: Troponin I < 0.012 ng/mL (0.000-0.034)
[2024-08-07 20:31] VITALS: PULSE 77; RESP 17; O2SAT 94
[2024-08-07 20:32] VITALS: BP 117/70; PULSE 67; RESP 12; O2SAT 95
[2024-08-07 22:04] VITALS: BP 137/76; PULSE 68; RESP 16; TEMP 37; O2SAT 98
--- OUTSIDE RECORDS SUMMARY | 2024-08-15 00:16 | XMS_ITS | Continuity of Care Document ---
Author Organization [facility] Address [address] [place] [phone] Encounter [facility] Financial Number [id number] Date(s): 03/22/22 - 03/22/[address] [id number] Discharge Disposition: Home or Self Care Attending Physician: Blair Toribio MD Referring Physician: Blair Toribio MD
== END 2024-08-07 22:06 | disposition home or self-care (01) ==
PROVIDERS: Emergency Medicine; Emergency Provider Physician Assistant; PCP Family Medicine
DX: K29.00 Acute gastritis without bleeding (principal); R07.89 Other chest pain; I10 Essential (primary) hypertension; E78.5 Hyperlipidemia, unspecified; F32.A Depression, unspecified
CPT/HCPCS: 36415; 71046; 74177; 80053; 83690; 84484; 85025; 85380; 85610; 85730; 93005; 99284; A9270; Q9967

== ENCOUNTER 2024-12-26 18:31 | Emergency (ER) | payer OTHER, SELFPAY | END 2024-12-26 18:59 | disposition home or self-care (01) | PROVIDERS: Emergency Provider Nurse Practitioner Family; PCP Family Medicine | DX: J01.90 Acute sinusitis, unspecified (principal); I10 Essential (primary) hypertension; E78.00 Pure hypercholesterolemia, unspecified; F41.9 Anxiety disorder, unspecified | CPT/HCPCS: 99213; G0463 ==

== ENCOUNTER 2025-01-20 14:59 | Emergency (ER) | payer OTHER, SELFPAY ==
[2025-01-20 15:07] VITALS: BP 158/78; PULSE 109; RESP 16; TEMP 36.9; O2SAT 97
--- NOTE | 2025-01-20 15:08 | ED.URI ---
HPI - URI/Sore Throat General Stated Complaint: COUGH/SINUS/EARACHE/FEVER/CHILLS Time Seen by Provider: 01/20/25 15:10 Source: patient and RN notes reviewed Mode of arrival: ambulatory Limitations: no limitations History of Present Illness HPI Narrative: 59-year-old female presents with concern for 10 day history of cough, sinus congestion or pressure, urinary, qid, chills. Reports she has been taking Sudafed, allergy medicine, nose spray, cough medicine without relief. MD elicited complaint: cough and nasal congestion Related Data Home Medications ?Medication ?Instructions ?Recorded ?Confirmed ?Last Taken ?Type diazepam 2 mg tablet 2 mg PO Q6H PRN 03/02/22 12/10/24 Unknown History meclizine 25 mg tablet 25 mg PO TID PRN 03/02/22 12/10/24 Unknown History efinaconazole 10 % topical 1 applic topical QHS PRN 04/11/22 12/10/24 Unknown History solution with applicator Allergies Allergy/AdvReac Type Severity Reaction Status Date / Time acetaminophen (From Vicodin) Allergy Severe Vomiting Verified 08/20/24 09:45 hydrocodone (From Vicodin) Allergy Severe Vomiting Verified 08/20/24 09:45 adhesive tape Allergy Unknown skin Verified 08/20/24 09:45 irritation azithromycin (From Zithromax) Allergy Unknown Hives Verified 08/20/24 09:45 Review of Systems Review of Systems: CONSTITUTIONAL: Reports malaise, chills, fever. EYES: Denies visual changes, redness, or discharge. ENT: Reports rhinorrhea, congestion, sinus pain, otalgia and sore throat. CARDIOVASCULAR: Denies chest pain, palpitations, or edema. RESPIRATORY: Reports cough. Denies dyspnea. GASTROINTESTINAL: Denies abdominal pain, nausea, vomiting, diarrhea SKIN: Denies rash or itching. MUSCULOSKELETAL: Denies myalgia. NEUROLOGIC: Reports headache. All systems reviewed & are unremarkable except as noted in HPI and below PMFSH Past Medical History Medical History Stage 1 type 1 prediabetes Migraine syndrome Transient ischemic attack Essential hypertension delivery delivered Menieres disease Eczema Mixed hyperlipidemia Migraine without aura, intractable, with status migrainosus MDD (major depressive disorder), recurrent episode, mild Lipid screening Fatty liver Essential (primary) hypertension Elevated LFTs Elevated fasting glucose Dietary counseling and surveillance (05/10/17) Diarrhea, functional Diabetes mellitus screening Anxiety-like symptoms Surgical History Surgical History History of tonsillectomy History of partial hysterectomy Family History Family History Mother Family history of arthritis Asthma Hypertension Anxiety Dementia Father Brain aneurysm Anxiety Daughter Asthma Anxiety Depression Grandparent Cerebrovascular accident Grandparent Cancer of unknown origin Acute myocardial infarction Social History Social History Smoking status: Never smoker Alcohol intake: never Substance use: never Substance use type: does not use Lack of Transportation: No Lack of Food: Never True Current Housing: I Have Housing Concerned About Future Housing: No Difficulty Paying Gas/Electric Bills: No Difficulty Paying for Meds: No Currently Unemployed: No Education: Bachelor's Degree Difficulty w/ Childcare or Family Care: No Comments At time of signature, agree with nursing past medical, surgical, social and family history. There is no relevant family history pertinent to the presenting complaint Exam Narrative: GENERAL: Well-appearing, well-nourished, and in no acute distress. HEAD: Normocephalic EYES: PERRLA, conjunctivae clear ENT: Nares clear. Mucous membranes moist. TM pearly vega with dull light reflex bilaterally; no tragal tenderness. Oropharynx not erythematous without lesions. Tonsils not enlarged and without exudate, no drooling, no hoarseness, no trismus, uvula midline. NECK: Supple. No lymphadenopathy CHEST: Clear to auscultation, breath sounds equal. No wheezing, rhonchi, rales, or stridor. No respiratory distress, speaks in full sentences. HEART: Regular rate and rhythm. No murmur heard. SKIN: Warm, dry, no rash. NEURO: Alert and oriented x3. PSYCH: Normal mood and affect Course Course Emergency Course: Patient is aware of diagnosis, understands and agrees to treatment plan. Anticipatory guidance given. Patient agrees to follow-up as directed and is aware of reasons to seek care at the emergency department. Portions of this record may have been created with voice recognition software Level of Care: Express Care Visit Vital Signs Vital signs: Vital Signs Temperature 98.4 F 01/20/25 15:07 Pulse Rate 109 H 01/20/25 15:07 Respiratory Rate 16 01/20/25 15:07 Blood Pressure 158/78 H 01/20/25 15:07 Pulse Oximetry 97 01/20/25 15:07 Oxygen Delivery Room Air 01/20/25 15:07 Temperature 98.4 F 01/20/25 15:07 Pulse Rate 109 H 01/20/25 15:07 Respiratory Rate 16 01/20/25 15:07 Blood Pressure 158/78 H 01/20/25 15:07 Pulse Oximetry 97 01/20/25 15:07 Oxygen Delivery Room Air 01/20/25 15:07 Reviewed. MDM - URI/Sore Throat MDM Narrative Medical decision making narrative: Differential diagnosis considered: Salas virus, strep pharyngitis, allergic rhinitis, upper respiratory tract infection, sinusitis, rhinosinusitis, nasopharyngitis. viral pharyngitis, otitis media, otitis externa, pneumonia, bronchitis, viral cough syndrome, viral syndrome, and influenza. Exam findings show no acute concerns or changes; patient is non-toxic appearing and is in no distress. Patient is appropriate for outpatient treatment and follow-up. Lab Data Attestation: I reviewed the patient's lab results. Critical Care Time Critical Care Time Critical Care Time: No Discharge Plan Discharge Clinical Impression: Sinobronchitis Patient Disposition: Home Condition: Stable Instructions: Antibiotic Form, Sinusitis (ED) Additional Instructions: Take medication as prescribed Recommend antihistamine such as Benadryl at night time and Zyrtec or Zulema during the day Cough syrup may cause drowsiness; avoid driving or take it at night time. Also, recommend symptomatic treatment includes: rest, fluids, and increase humidity of the air at home. Recommend Acetaminophen as directed on the bottle to reduce fever, pain, headache. Avoid smoking/second-hand smoke. Please schedule a follow-up visit with your personal physician for further evaluation and treatment within 3-5days. Including recheck and discussion of your blood pressure. If your symptoms persist, change or worsen significantly before you can contact your personal physician then please, without delay, go to the emergency department for further evaluation. Patient Language: Kittitian Prescriptions: New promethazine-DM 6.25-15 mg/5 mL syrup 5 ml PO Q4-6H PRN (Reason: cough) Qty: 120 0RF methylprednisolone [Medrol (Sina)] 4 mg tablets,dose pack See Rx Instructions .ROUTE .COMPLEX Qty: 21 0RF Rx Instructions: orally per package directions amoxicillin-pot clavulanate 875-125 mg tablet 1 tablet PO Q12H 10 Days Qty: 20 0RF No Action meclizine 25 mg tablet 25 mg PO TID PRN diazepam 2 mg tablet 2 mg PO Q6H PRN efinaconazole 10 % solution with applicator 1 applic topical QHS PRN sumatriptan succinate 50 mg tablet See Rx Instructions PO .COMPLEX Qty: 1 0RF Rx Instructions: take 1 tab at onset of headache; if no relief may repeat 1 tab after at least 2 hrs; max = 4 tabs/24 hr PO atorvastatin 80 mg tablet 80 mg PO DAILY Qty: 90 4RF omeprazole 10 mg capsule,delayed release(DR/EC) 10 mg PO DAILY Qty: 30 0RF aspirin 81 mg capsule 81 mg PO DAILY Qty: 30 3RF fluoxetine 20 mg tablet 20 mg PO DAILY Qty: 30 6RF amlodipine 5 mg tablet 5 mg PO DAILY Qty: 30 5RF Contrave 8-90 mg tablet extended release 2 tablet PO QAM AND QPM Qty: 120 0RF lisinopril 2.5 mg tablet 2.5 mg PO DAILY Qty: 90 0RF Follow-up/Referrals: Malu Medley MD [Primary Care Provider] - Time of Disposition: 15:19
== END 2025-01-20 15:22 | disposition home or self-care (01) ==
PROVIDERS: Emergency Provider Nurse Practitioner; PCP Family Medicine
DX: J32.9 Chronic sinusitis, unspecified (principal); J40 Bronchitis, not specified as acute or chronic; I10 Essential (primary) hypertension; E78.2 Mixed hyperlipidemia; K76.0 Fatty (change of) liver, not elsewhere classified; R73.03 Prediabetes; Z90.711 Acquired absence of uterus with remaining cervical stump
CPT/HCPCS: 99213; G0463

== ENCOUNTER 2025-06-19 19:11 | Emergency (ER) | payer OTHER, SELFPAY ==
--- NOTE | 2025-06-19 19:12 | ED.URI ---
HPI - URI/Sore Throat General Chief Complaint: Upper Respiratory Infection Stated Complaint: SORE THROAT/HEADACHE Time Seen by Provider: 06/19/25 19:12 Source: patient Mode of arrival: ambulatory Limitations: no limitations History of Present Illness HPI Narrative: patient is a 59-year-old female who presents with sore throat it radiates straight ear for 2 days. Patient has also had right-sided headache today. Denies any fever, chills, cough, congestion, nausea, vomiting, diarrhea. Has not taken anything for pain. Related Data Home Medications ?Medication ?Instructions ?Recorded ?Confirmed ?Last Taken ?Type diazepam 2 mg tablet 2 mg PO Q6H PRN 03/02/22 12/10/24 Unknown History meclizine 25 mg tablet 25 mg PO TID PRN 03/02/22 12/10/24 Unknown History efinaconazole 10 % topical 1 applic topical QHS PRN 04/11/22 12/10/24 Unknown History solution with applicator Allergies Allergy/AdvReac Type Severity Reaction Status Date / Time acetaminophen (From Vicodin) Allergy Severe Vomiting Verified 06/19/25 19:21 hydrocodone (From Vicodin) Allergy Severe Vomiting Verified 06/19/25 19:21 adhesive tape Allergy Unknown skin Verified 06/19/25 19:21 irritation azithromycin (From Zithromax) Allergy Unknown Hives Verified 06/19/25 19:21 Review of Systems Review of Systems: All systems reviewed & are unremarkable except as noted in HPI and below Constitutional: Constitutional: Denies chills, Denies fatigue, Denies fever(s), Reports headache(s), Denies malaise and Denies weakness Eyes: Eyes: Denies blurry vision, Denies itchy eyes and Denies loss of vision ENT: Reports otalgia, Reports headache(s), Denies nasal congestion, Denies sinus pain and Reports sore throat Cardiovascular: Cardiovascular: Denies chest pain, Denies irregular heart rhythm and Denies dyspnea Respiratory: Respiratory: Denies cough and Denies dyspnea Gastrointestinal: Gastrointestinal: Denies abdominal pain, Denies diarrhea, Denies nausea and Denies vomiting Musculoskeletal: Musculoskeletal: Denies back pain, Denies myalgias and Denies arthralgias Integumentary/Breasts: Skin/Breast: Denies pruritus and Denies rash Neurologic: Denies headache(s), Denies loss of vision and Denies weakness Psychiatric: Psychiatric: Reports no additional psychiatric complaints Endocrine: Endocrine: Denies fatigue Allergic/Immunologic: Allergic/Immunologic: Denies itchy eyes PMFSH Past Medical History Medical History Stage 1 type 1 prediabetes Migraine syndrome Transient ischemic attack Essential hypertension delivery delivered Menieres disease Eczema Mixed hyperlipidemia Migraine without aura, intractable, with status migrainosus MDD (major depressive disorder), recurrent episode, mild Lipid screening Fatty liver Essential (primary) hypertension Elevated LFTs Elevated fasting glucose Dietary counseling and surveillance (05/10/17) Diarrhea, functional Diabetes mellitus screening Anxiety-like symptoms Surgical History Surgical History History of tonsillectomy History of partial hysterectomy Family History Family History Mother Family history of arthritis Asthma Hypertension Anxiety Dementia Father Brain aneurysm Anxiety Daughter Asthma Anxiety Depression Grandparent Cerebrovascular accident Grandparent Cancer of unknown origin Acute myocardial infarction Social History Social History Alcohol intake: never Substance use: never Substance use type: does not use Lack of Transportation: No Lack of Food: Never True Current Housing: I Have Housing Concerned About Future Housing: No Difficulty Paying Gas/Electric Bills: No Difficulty Paying for Meds: No Currently Unemployed: No Education: Bachelor's Degree Difficulty w/ Childcare or Family Care: No Comments At time of signature, agree with nursing past medical, surgical, social and family history. There is no relevant family history pertinent to the presenting complaint. Exam Const: General: cooperative, healthy appearing, comfortable, no acute distress and well nourished Nutritional Appearance: well nourished Orientation/consciousness: patient oriented x3 Limitations: no limitations HENMT: Head: normal to inspection, normocephalic and atraumatic Ears: hearing grossly normal bilaterally, external ears normal, TM normal on the left, EAC's normal, no periauricular adenopathy and TM abnormal wth effusion serous on the right Face/Nose/Sinus: Normal external nose present, Abnormal mucous membranes and turbinates present erythematous bilateral and diffuse, normal facial exam, sinuses nontender and face symmetric Face and sinus: normal facial exam, sinuses nontender and face symmetric Mouth: Yes Normal oral and palatal mucosa present, Yes lip normal, Yes tongue normal, Yes Normal salivary glands and ducts present, Yes oropharynx normal and Yes moist mucous membranes Teeth and gingiva: dentition normal Throat: posterior oropharynx normal, tonsils normal, uvula midline and postnasal drainage Eyes: General: appearance normal, both eyes and all related structures Alignment and Position: alignment normal and position normal Periorbital: periorbital findings normal Eyelids: eyelids normal Pupils: Equal, round and reactive pupils present Neck: Neck: normal visual inspection, full ROM, no lymphadenopathy and supple Chest: Chest palpation & inspection: normal inspection of the chest and normal palpation of entire chest wall Resp: Effort & Inspection: normal respiratory effort and able to speak in complete sentences Auscultation: clear to auscultation bilaterally, no crackles, no rales, no rhonchi and no wheezes Cardio: Rate: regular rate Rhythm: regular rhythm Heart sounds: S1 normal heart sound present and S2 normal heart sound present GI: Inspection: normal to inspection Skin: General skin exam: normal color and no rashes or lesions noted Neuro: General: patient oriented x3 and moves all extremities Cranial nerves: Yes Equal, round and reactive pupils present Speech: normal speech Gait exam (Neuro): Normal gait present Extrem: General: normal to inspection, full ROM and no edema Psych: Appearance: grossly normal and well kempt Mental Status: mental status grossly normal Speech and movement: Normal speech and movement present Affect: normal affect Attitude: cooperative Thought process: Normal thought process present Course Course Emergency Course: Discharge instructions reviewed with patient, as well as provided in writing per nursing staff. The instructions also include specific and strict return/GO TO THE ER as well as f/u information. All questions have been answered, and the patient deny any further questions with discharge and discharge plan. Portions of this record may have been created with voice recognition software Level of Care: Express Care Visit Vital Signs Vital signs: Vital Signs Temperature 36.0 C L 06/19/25 19:21 Pulse Rate 85 06/19/25 19:21 Respiratory Rate 16 06/19/25 19:21 Blood Pressure 141/70 H 06/19/25 19:21 Pulse Oximetry 98 06/19/25 19:21 Temperature 36.0 C L 06/19/25 19:21 Pulse Rate 85 06/19/25 19:21 Respiratory Rate 16 06/19/25 19:21 Blood Pressure 141/70 H 06/19/25 19:21 Pulse Oximetry 98 06/19/25 19:21 Reviewed MDM - URI/Sore Throat MDM Narrative Medical decision making narrative: Pt well hydrated appearing, in no respiratory distress, hemodynamically stable. Recommend supportive care. The patient is stable at time of discharge the clinical impression was discussed and the patient was given the opportunity to ask questions, which were addressed as completely as possible given the information available at present. Anticipatory guidance and return to care precautions were discussed and the importance of primary care follow-up was stressed and encouraged. The patient voiced understanding of the plan, indications to return, and the need for follow-up. Exam findings show no acute concerns or changes Patient is appropriate for outpatient treatment and follow-up. Differential diagnosis considered: Salas virus, strep pharyngitis, allergic rhinitis, upper respiratory tract infection, sinusitis, rhinosinusitis, nasopharyngitis. viral pharyngitis, otitis media, otitis externa, otitis effusion, foreign body, cerumen impaction, viral syndrome, and influenza.? Medical Records Attestation: I reviewed the patient's medical records. Lab Data Attestation: I reviewed the patient's lab results. Labs: Lab Results 06/19/25 Range/Units 19:29 POC Grp A Strep Screen Negative (Negative) Discharge Plan Discharge Clinical Impression: Acute effusion of right ear Pharyngitis Qualifiers: Pharyngitis/tonsillitis etiology: unspecified etiology Qualified Code(s): J02.9 - Acute pharyngitis, unspecified Patient Disposition: Home Condition: Stable Instructions: Pharyngitis (ED), Fluid In The Ear (Serous Otitis Media) (ED) Additional Instructions: Your rapid strep swab was negative today at [facility]. A throat culture will be sent to the laboratory for further testing. If the test is positive, you will receive a phone call within 48 hours and an appropriate antibiotic will be initiated at that time. Your symptoms are likely due to a viral illness, which is not treated with antibiotics. Viral symptoms can be present for up to a few weeks. -For pain/fever, you may take: Tylenol 650-1000mg by mouth every 4-6 hours. Do not exceed 4000mg in 24 hours. Advil (Ibuprofen) 600 mg by mouth every 6 hours. Do not exceed 2400mg in 24 hours. 8 AM: Tylenol 11 AM: Ibuprofen 2 PM: Tylenol 5 PM: Ibuprofen 8 PM: Tylenol 11 PM: Ibuprofen 2 AM: Tylenol 5 AM: Ibuprofen -Antihistamine medication such as Benadryl/Zyrtec at night and Claritin/Zulema during the day can help improve symptoms. -Use Flonase twice a day for 5 days then daily to help reduce the inflammation and dry up your sinuses. -You can also use Sudafed behind the pharmacy counter(12 or 24 hour). Be sure to drink plenty of water with these medications at least 8 ounces with every dose and it is important to drink 8 to 10 glasses of water per day. Water is a natural decongestant -Eat and drink things that are easy to swallow, like tea or soup, or popsicles. -Oral rinses such as: Salt water gargles and/or may use topical anesthetic (eg. Chloraseptic spray) or lozenges to relieve dryness or throat pain). -Frequent hand washing or hand theology teacher is one of the best ways to prevent spread of infection. -Using a vaporizer or humidifier at night will also help thin secretions and help with coughing up phlegm. Call your Primary Care Doctor and make a follow-up appointment in 3 days. If your cough worsens, you develop a fever greater than 103, you develop shaking chills, a fast heartbeat, trouble breathing and/or feel you are are breathing much faster than usual, call your Primary Care Doctor or go to the ER. Patient Language: Beninese Prescriptions: New fluticasone propionate [Flonase Allergy Relief] 50 mcg/actuation spray,suspension 2 spray intranasal DAILY Qty: 16 0RF Rx Instructions: administer into each nostril No Action promethazine-DM 6.25-15 mg/5 mL syrup 5 ml PO Q4-6H PRN (Reason: cough) Qty: 120 0RF methylprednisolone [Medrol (Sina)] 4 mg tablets,dose pack See Rx Instructions .ROUTE .COMPLEX Qty: 21 0RF Rx Instructions: orally per package directions amoxicillin-pot clavulanate 875-125 mg tablet 1 tablet PO Q12H 10 Days Qty: 20 0RF meclizine 25 mg tablet 25 mg PO TID PRN diazepam 2 mg tablet 2 mg PO Q6H PRN efinaconazole 10 % solution with applicator 1 applic topical QHS PRN sumatriptan succinate 50 mg tablet See Rx Instructions PO .COMPLEX Qty: 1 0RF Rx Instructions: take 1 tab at onset of headache; if no relief may repeat 1 tab after at least 2 hrs; max = 4 tabs/24 hr PO atorvastatin 80 mg tablet 80 mg PO DAILY Qty: 90 4RF omeprazole 10 mg capsule,delayed release(DR/EC) 10 mg PO DAILY Qty: 30 0RF aspirin 81 mg capsule 81 mg PO DAILY Qty: 30 3RF fluoxetine 20 mg tablet 20 mg PO DAILY Qty: 30 6RF lisinopril 2.5 mg tablet 2.5 mg PO DAILY Qty: 90 0RF amlodipine 5 mg tablet 5 mg PO DAILY Qty: 30 5RF Contrave 8-90 mg tablet extended release 2 tablet PO QAM AND QPM Qty: 120 0RF Follow-up/Referrals: Galindo,MD Malu [Primary Care Provider, Family Practice] Time of Disposition: 19:41
[2025-06-19 19:21] VITALS: BP 141/70; PULSE 85; RESP 16; TEMP 36; O2SAT 98
[2025-06-19 19:32] LABS: EDSTREPNEGPOS1 Negative (Negative)
== END 2025-06-19 19:44 | disposition home or self-care (01) ==
PROVIDERS: Emergency Provider Nurse Practitioner Family; PCP Family Medicine
DX: H65.01 Acute serous otitis media, right ear (principal); J02.9 Acute pharyngitis, unspecified; I10 Essential (primary) hypertension; E78.2 Mixed hyperlipidemia; K76.0 Fatty (change of) liver, not elsewhere classified; R73.03 Prediabetes; F33.9 Major depressive disorder, recurrent, unspecified; Z86.73 Personal history of transient ischemic attack (TIA), and cerebral infarction without residual deficits; Z90.711 Acquired absence of uterus with remaining cervical stump; Z79.82 Long term (current) use of aspirin
CPT/HCPCS: 87081; 87880; 99213; G0463